=== PATIENT | female | born 1970 | race Caucasian/White ===

== ENCOUNTER 2018-12-11 08:07 | Observation (INO) ==
--- NOTE | 2018-12-07 09:42 | Anesthesiology Consultation ---
Date of Service December 07, 2018 Assessment & Plan (1) Encounter for pre-operative examination: Chart received for review 12/07/18. Hx diabetes; BMP and EKG were not ordered with preop testing. Will order for AM DOS. Pending review of preop testing AM DOS/evaluation of clinical status, patient acceptable risk to proceed with surgery. Chart Review Chart Review: Patient NOT seen in Pre Admission Testing History Surgery Operation Date: 12/11/18 09:50 Proposed Procedures p Anterior Cervical Osteophyte Removal - Darryn Kelley DO Height/Weight Height: 5 ft 1.5 in Weight: 87.543 kg Allergies Allergy/AdvReac Type Severity Reaction Status Date / Time ceftriaxone [From Rocephin] Allergy Unknown Rash Verified 11/29/18 13:05 cephalexin [From Keflex] Allergy Rash Verified 11/29/18 13:05 Sulfa (Sulfonamide Allergy Rash Verified 11/29/18 13:05 Antibiotics) Medications Home Medications Medication Instructions Recorded Confirmed Last Taken albuterol sulfate 1 puff INHALATION Q6H PRN 11/29/18 11/29/18 Unknown calcium carbonate-vitamin D3 1 tab PO BID 11/29/18 11/29/18 Unknown [Calcium 500 + D] diclofenac sodium 50 mg PO Q12 11/29/18 11/29/18 Unknown fluticasone propionate [Flonase 1 spray INTRANASAL BID PRN 11/29/18 11/29/18 Unknown Allergy Relief] folic acid 1 mg PO QAM 11/29/18 11/29/18 Unknown gabapentin 300 mg PO QAM 11/29/18 11/29/18 Unknown gabapentin 600 mg PO HS 11/29/18 11/29/18 Unknown infliximab [Remicade] 100 mg IV Q8 11/29/18 11/29/18 Unknown insulin degludec-liraglutide 34 ml SUBCUT QAM 11/29/18 11/29/18 Unknown [Xultophy 100/3.6] levocetirizine [Xyzal] 5 mg PO QAM 11/29/18 11/29/18 Unknown lisinopril 2.5 mg PO QAM 11/29/18 11/29/18 Unknown mercaptopurine 100 mg PO QAM 11/29/18 11/29/18 Unknown mesalamine 1,600 mg PO TID 11/29/18 11/29/18 Unknown montelukast [Singulair] 10 mg PO PM 11/29/18 11/29/18 Unknown pantoprazole [Protonix] 40 mg PO QAM 11/29/18 11/29/18 Unknown rosuvastatin [Crestor] 20 mg PO HS 11/29/18 11/29/18 Unknown umeclidinium-vilanterol [Anoro 1 inh INHALATION QAM 11/29/18 11/29/18 Unknown Ellipta] Past Medical History Medical History Ankylosing spondylitis of cervical region Bulging lumbar disc Crohns disease Diabetes mellitus, type 2 Exercise-induced asthma Hiatal hernia History of kidney stones Hyperlipidemia Hypertension Ulcerative colitis Past Family History Family History Father Family history of diabetes mellitus Mother Family history of diabetes mellitus Grandmother (Maternal) Family history of diabetes mellitus Past Surgical History Surgical History History of endometrial ablation History of esophagogastroduodenoscopy (EGD) Hx of arthroscopic knee surgery LEFT Hx of cholecystectomy Hx of colonoscopy Hx of decompression of ulnar nerve RIGHT Hx of shoulder surgery LEFT Social History Smoking Status: Never smoker Do You Dip or Chew Tobacco: No Hx Alcohol Use: Yes Alcohol type: hard liquor alcohol intake frequency: holidays/special occasions only Hx Substance Use: No
--- NOTE | 2018-12-08 14:27 | History and Physical Report ---
DATE OF ADMISSION: 12/11/2018 CHIEF COMPLAINT: Swallowing difficulty. HISTORY OF PRESENT ILLNESS: Nikki is pleasant. She is 48. She has a disease called ankylosing spondylitis. She has been gone on to make significant osteophyte formation in her cervical spine which is impeding her swallowing ability. We are going to electively take off the anterior cervical osteophytes on the cervical spine. PAST MEDICAL HISTORY: Ankylosing spondylitis, diabetes, high cholesterol, hypertension, asthma. PAST SURGICAL HISTORY: Knee scope, shoulder scope, cholecystectomy, colonoscopy. ALLERGIES: ROCEPHIN, KEFLEX. FAMILY HISTORY: Diabetes. SOCIAL HISTORY: , rarely drinks. No tobacco. Moderately active. REVIEW OF SYSTEMS: Denies any fevers, sweats, chills. Ear, nose and throat negative. Denies any chest pain, palpitations. No nausea, vomiting. She does have difficulty swallowing. Denies chest pain, palpitations. She admits to stiffness of her cervical spine and diabetes. MEDICATIONS: Numerous and are kept on the patient inquiry, I am holding off on dictation of these. EXAMINATION: GENERAL: She is alert, oriented. She is 5 feet 1 inch, 190, no terrible distress. HEENT: Essentially normal except for difficulty swallowing. There is no palpable defect. VITAL SIGNS: Blood pressure 130/80, pulse 80, respirations 16. CARDIAC: Normal S1, S2, no S3. LUNGS: Clear to auscultation. No rales, rhonchi, wheezing. ABDOMEN: Soft, nontender. NEUROLOGIC: Intact, 5/5 strength, good sensation and motor ability. Sensory and reflex ability. IMAGING: X-rays demonstrate severe osteophyte formation in the cervical spine. IMPRESSION: Cervical osteophytes, C3-C6 from ankylosing spondylitis. PROCEDURE: Included an anterior cervical osteophyte removal from C3-C6.
[~2018-12-11 08:07] MED LIST: CLINDAMYCIN 600 MG/54 ML BAG IV SCH; LR 15ML/HR IV SCH; SODIUM CHLORIDE 0.9% 1000ML 1,000 ML IV SCH; SODIUM CHLORIDE 0.9% 250 ML IV PRN
[2018-12-11 08:48] LABS: Basophils # (auto) 0.04 K/uL (0-0.2); Basophils % (auto) 0.5 %; Eosinophils # (auto) 0.31 K/uL (0-0.5); Eosinophils % (auto) 3.9 %; Hematocrit (blood only) 38.4 % (37-47); Hemoglobin 13.1 g/dL (12.0-16.0); Immature Granulocytes # (auto) 0.04 K/uL (0.00-0.02); Immature Granulocytes % (auto) 0.5 %; Lymphocytes # (auto) 2.27 K/uL (1.2-3.4); Lymphocytes % (auto) 28.7 %; Mean Corpuscular Volume 85.3 fL (80-100); Mean Platelet Volume 9.7 fL (7.4-10.4); Monocytes # (auto) 0.55 K/uL (0.11-0.59); Neutrophils % (auto) 59.4 %; Platelet Count 243 K/uL (130-400); RDW Coefficient of Variation 14.1 % (11.5-14.5); RDW Standard Deviation 43.8 fL (36.4-46.3); White Blood Count 7.91 K/uL (4.8-10.8)
[2018-12-11 08:54] LABS: Mean Corpuscular Hgb Conc 34.1 g/dL (32-36)
[2018-12-11 09:07] LABS: BUN Creatinine Ratio 17.8 (10-20); Calcium 9.3 mg/dl (8.5-10.1); Creatinine Clr Calc Pharmacy 95.7 ml/min; Est GFR (African American) 112.1; Est GFR (Non-African American) 96.7; Potassium 3.7 mmol/L (3.5-5.1)
[2018-12-11] MEDS ORDERED: MIDAZOLAM HCL 1 MG/ML 2ML VIAL ONE (09:18)
[2018-12-11] MEDS ORDERED: fentaNYL citrate 100 MCG/2 ML VIAL ONE (09:18)
[2018-12-11] MEDS ORDERED: THROMBIN FOR SOLN 20000 UNIT KIT ONE (09:52)
[2018-12-11] MEDS ORDERED: BACITRACIN INJ 50,000 UNIT VIAL ONE (09:52)
[2018-12-11] MEDS ORDERED: GELATIN SPONGE SZ 100 ONE (09:52)
[2018-12-11] MEDS ORDERED: BUPIVACAINE/EPINEPHRINE 0.5% MPF 1:200,000 30 ML VIAL ONE (09:52)
--- NOTE | 2018-12-11 10:07 | History & Physical Bridge Note ---
Date of Service December 11, 2018 History & Physical Bridge Note I have examined the patient, reviewed the History & Physical and in the interval since the performance of the History & Physical I have noted the following changes of clinical significance: no changes noted
[2018-12-11] MEDS ORDERED: HYDROmorphone INJ 1 MG/ML SYRINGE IV PRN (10:40)
[2018-12-11] MEDS ORDERED: ePHEDrine sulfate 50 MG/ML AMP IV PRN (10:40)
[2018-12-11] MEDS ORDERED: ONDANSETRON INJ 2 MG/ML 2 ML VIAL IV PRN ×2 (10:40→13:41)
[2018-12-11] MEDS ORDERED: ATROPINE SULFATE 0.1 MG/ML 10ML SYR IV PRN (10:40)
[2018-12-11] MEDS ORDERED: HYDROmorphone INJ 2 MG/ML SYR/VIAL ONE (10:42)
[2018-12-11] MEDS ORDERED: NEOSTIGMINE METHYLSULFATE 5 MG/5 ML SYR ONE (11:05)
[2018-12-11] MEDS ORDERED: DEXAMETHASONE SOD INJ 4 MG/ML VIAL ONE (11:05)
[2018-12-11] MEDS ORDERED: LIDOCAINE HCL 2% 2 ML VIAL/AMP(20MG/ML) INFIL ONE (11:05)
[2018-12-11] MEDS ORDERED: PHENYLEPHRINE HCL 10 MG/ML VIAL ONE (11:05)
[2018-12-11] MEDS ORDERED: ONDANSETRON INJ 2 MG/ML 2 ML VIAL ONE (11:05)
[2018-12-11] MEDS ORDERED: SUCCINYLCHOLINE CHLORIDE 20 MG/ML 10 ML VIAL ONE (11:05)
[2018-12-11] MEDS ORDERED: ePHEDrine sulfate 50 MG/ML AMP ONE (11:05)
[2018-12-11] MEDS ORDERED: PROPOFOL IV EMULSION 10 MG/ML 20 ML VIAL IV ONE (11:05)
[2018-12-11] MEDS ORDERED: GLYCOPYRROLATE 0.2 MG/ML VIAL ONE (11:05)
--- NOTE | 2018-12-11 11:47 | Post Operative Brief Note ---
Immediate Post Op Note v1 Date of Surgery December 11, 2018 Pre & Post Diagnosis Operation Date: 12/11/18 10:20 Pre-Op Diagnosis: Ankylosing Spondylitis Post-Op Diagnosis: Ankylosing Spondylitis Procedure Operation Date: 12/11/18 10:20 Actual Procedures p C3-C6 Anterior Cervical Osteophyte Removal(Not Applicable) - Darryn Kelley DO Surgeon Darryn Kelley DO Contact Center Director ranjith Estimated Blood Loss 40 Findings Consistent with Post-Op Diagnosis Drains [place] Drain Complications none Disposition Accompanied Patient To Recovery: Yes Overlapping Procedure I was immediately available: during the entire case.
--- NOTE | 2018-12-11 11:57 | Fluoroscopy Report ---
FL spine 1V any level HISTORY: 48 years-old Female C3-C6 CERVICAL OSTEOPHYTE REMOVAL status post fusion of the cervical sp ine COMPARISON: Cervical spine radiographs 08/30/2018 TECHNIQUE: Single lateral spot fluoroscopic image of the cervical spine was obtained utilizing 7.3 se conds fluoroscopy time FINDINGS: C5, C6 and C7 vertebral bodies are not well-seen secondary to overlying soft tissue. Alignment at C2- C3 and C3-C4 appears unremarkable. The previously noted large anterior endplate bridging osteophytes at C3-C4 and C4-C5 appears to have been removed in the interval. Satisfactory alignment. Mild multile juana facet arthrosis. No hardware identified. IMPRESSION: Fluoroscopic assistance as above. Please see operative report for further details. The above report was generated using voice recognition software. It may contain grammatical, syntax o r spelling errors. Electronically signed by: Shakeel Becker M.D. 12/11/2018 11:55 AM
[2018-12-11] MEDS: fentaNYL citrate 100 MCG/2 ML VIAL IV PRN ×2 (12:22→12:32)
--- NOTE | 2018-12-11 13:12 | Anesthesiology Progress Note ---
Date of Service December 11, 2018 Anesthesia Post Procedure Vital Signs Vital Signs: Temp Pulse Pulse Resp BP Pulse Ox 12/11/18 13:05 36.4 C L 72 13 142/87 H 100 12/11/18 12:55 74 13 139/85 100 12/11/18 12:45 81 13 141/84 H 100 12/11/18 12:35 84 22 152/80 H 99 12/11/18 12:25 70 14 139/75 100 12/11/18 12:15 83 13 156/84 H 100 12/11/18 12:07 36.1 C L 91 H 16 166/74 H 100 12/11/18 08:44 37 C 85 20 128/78 99 Pain Intensity Neck: Pain Intensity: 3 Transfer of Care Handoff Completed per policy Notes Mental Status: alert / awake / arousable and participated in evaluation Patient Amnestic to Procedure: Yes Nausea / Vomiting: adequately controlled Pain: adequately controlled Airway Patency, RR, SpO2: stable & adequate BP & HR: stable & adequate Hydration State: stable & adequate Anesthetic Complications: no major complications apparent and Pt Satisfied with anesthetic care
[2018-12-11] MEDS ORDERED: ACETAMINOPHEN 1,000 MG/100 ML VIAL IV PRN (13:41)
[2018-12-11] MEDS ORDERED: HYDROmorphone INJ 0.5 MG/0.5 ML SYR IV PRN (13:41)
[2018-12-11] MEDS ORDERED: NALOXONE HCL 0.4 MG/1 ML VIAL/CARP IV PRN (13:41)
[2018-12-11] MEDS ORDERED: DiphenhydrAMINE HCL 50 MG/ML VIAL IV PRN (13:41)
[2018-12-11] MEDS ORDERED: RACEPINEPHRINE 2.25% NEBU SOLN 0.5 ML VIAL INH PRN (13:41)
[2018-12-11] MEDS ORDERED: DEXAMETHASONE SOD PHOSPHATE 8 MG in SYRINGE 0 ML IV PRN (13:41)
[2018-12-11] MEDS ORDERED: LORazepam 0.5 MG/1 ML VIAL IV PRN (13:41)
[2018-12-11] MEDS ORDERED: PHARMACY GLYCEMIC MGMT CONSULT PRN (13:47)
[2018-12-11] MEDS: SODIUM CHLORIDE 0.9% 1000ML 1,000 ML IV SCH (13:50)
[2018-12-11] MEDS ORDERED: INFLIXIMAB 100 MG/10 ML VIAL IV SCH (14:00)
--- NOTE | 2018-12-11 14:12 | Operative Report ---
DATE OF OPERATION: 12/11/2018 SURGEON: Darryn Kelley DO LIVESTOCK INSPECTOR: Mikael Mullen PA-C PREOPERATIVE DIAGNOSIS: Ankylosing spondylitis with swallowing impediment. POSTOPERATIVE DIAGNOSIS: Ankylosing spondylitis with swallowing impediment. PROCEDURES: Removal of anterior osteophytes on the vertebral bodies from C3 down to C5 of the cervical spine. DESCRIPTION OF PROCEDURE: Prior to the patient coming to the operating room, she was formally identified in the holding area. We brought her back, generally intubated, anesthetic provided. Scrubbed, prepped, draped sterile, made a formal timeout. We made a transverse skin incision roughly on the C4 vertebral level. We dissected the soft tissue in the same plane. We cut down the longus colli muscle. The patient was quite obese. The actual approach was difficult. It was deep and the soft tissue planes were distorted because of the osteophyte formation. We got to the anterior aspect of the spine. I brought in the C-arm, we could visualize the anterior osteophytes. We had hand-held retractors with various maneuvers. We did take off ample amount of osteophyte formation in the anterior aspect of the spinal vertebral body. These were lying just underneath the trachea and esophagus. I used an osteotome, some rongeurs, all hand-held instruments, there were no high-speed instruments. I took another cross table lateral radiograph. I felt it was ample dissection and I felt we did more, we would endanger the patient. We then irrigated thoroughly. I got all bleeders from soft tissue and bone. Bone wax was used over the anterior aspect. I was pleased with the hemostasis and pleased with the dissection. We irrigated and closed over a [place] drain. Sterile dressings applied. The patient was transferred to PACU improved, stable condition. There were no issues or complications. No implants used. Sponge and needle count correct at the close. I attest to the content of the Intraoperative Record and any orders documented therein. Any exception s are noted below.
--- NOTE | 2018-12-11 14:52 | Pharmacy Report ---
Glycemic Control Consultation - Date of Service December 11, 2018 - Scope Scope: Glycemic Pharmacist consulted by Dr Mullen on 12/11/18 for glycemic control and to write orders per [facility] inpatient glycemic control protocol - Objective Weight: 89.2 kg Accuchecks BSG (last 24hrs): 12/11/18 12/11/18 12/11/18 08:33 08:38 12:14 Glucose 135 H POC Glucose 136 H 138 H Laboratory Data (last 24hrs): 12/11/18 08:33 Potassium 3.7 Carbon Dioxide 27 Anion Gap 7.0 Creatinine 0.73 Est Cr Clr Drug Dosing 95.7 - Recent Pertinent Medications Outpatient Anti-diabetic Regimen: * Degludec/liraglutide 34u QAM - Assessment & Plan Assessment & Plan: ASSESSMENT: * Ms. Sanon is a 48yo F unknown to the pharmacy glycemic service. She is POD: 0 for a cervical osteophyte removal. She received 4mg IV DXM perioperatively. I am unsure of her diabetic status as I do not have access to an A1C. * She is maintained on Degludec/liraglutide 34u QAM, she self administered 17u this morning GEAR CHANGER. * Post op BS, she is still NPO. PLAN FOR INPATIENT GLYCEMIC CONTROL: * Basal insulin * none indicated at this juncture. will add scale for this evening, see MAR for further details * Bolus insulin * NovoLog per scale ACHS or Q6hrs while NPO * Goal Range: Low 110 mg/dL - High 140 mg/dL * Correction Factor: 20 mg/dL/unit * Nutritional / Prandial insulin per carb ratio of 1 unit per 6 grams CHO consumed * Please note that the plan above was derived based on current level of insulin resistance and hospital stress. These recommendations are appropriate for inpatient admission only. Plan of care upon discharge will need to be reassessed to avoid potential outpatient hypo/hyperglycemia. Thank you.
[2018-12-11] MEDS ORDERED: INSULIN GLARGINE SOLOSTAR 100 UNITS/ML 3 ML PEN SC ONE (16:30)
[2018-12-11] MEDS: OXYCODONE HCL IR 5 MG TAB (IMMEDIATE RELEASE) PO PRN ×2 (17:09→20:52)
[2018-12-11] MEDS ORDERED: INSULIN ASPART 100 UNITS/ML 3 ML PEN SC SCH (18:00)
[2018-12-11] MEDS: INSULIN ASPART 100 UNITS/ML 3 ML PEN SC SCH ×2 (18:12→21:04)
[2018-12-11] MEDS: CLINDAMYCIN 600 MG in DEXTROSE 5% 50 ML IV SCH (19:18)
[2018-12-11] MEDS ORDERED: GABAPENTIN 600 MG TAB PO SCH (21:00)
[2018-12-11] MEDS ORDERED: ROSUVASTATIN CALCIUM 20 MG TAB PO SCH (21:00)
[2018-12-11] MEDS ORDERED: MONTELUKAST SODIUM 10 MG TABLET PO SCH (21:00)
[2018-12-12] MEDS ORDERED: INSULIN ASPART 100 UNITS/ML 3 ML PEN SC ONE
[2018-12-12] MEDS: CLINDAMYCIN 600 MG in DEXTROSE 5% 50 ML IV SCH ×2 (01:59→09:33)
[2018-12-12] MEDS: SODIUM CHLORIDE 0.9% 1000ML 1,000 ML IV SCH (03:07)
[2018-12-12 06:42] LABS: Estimated Average Glucose 183 mg/dl
[2018-12-12] MEDS: INSULIN ASPART 100 UNITS/ML 3 ML PEN SC SCH (08:29)
[2018-12-12] MEDS: OXYCODONE HCL IR 5 MG TAB (IMMEDIATE RELEASE) PO PRN (08:36)
[2018-12-12] MEDS ORDERED: GABAPENTIN 300 MG CAP PO SCH (09:00)
[2018-12-12] MEDS ORDERED: FOLIC ACID 1 MG TAB PO SCH (09:00)
[2018-12-12] MEDS ORDERED: LISINOPRIL 2.5 MG TAB PO SCH (09:00)
[2018-12-12] MEDS ORDERED: PANTOprazole 40 MG TAB PO SCH (09:00)
--- NOTE | 2018-12-12 09:22 | Anesthesiology Progress Note ---
Date of Service December 12, 2018 Anesthesia Post Procedure Vital Signs Vital Signs: Temp Pulse Pulse Pulse Resp BP Pulse Ox 12/12/18 07:23 36.7 C 69 18 121/81 99 12/12/18 06:05 36.7 C 93 H 16 123/81 12/12/18 04:04 92 H 18 97 12/12/18 04:00 36.9 C 94 H 14 116/76 97 12/12/18 02:03 36.9 C 90 14 116/74 95 12/12/18 00:05 37.1 C 112 H 14 132/77 96 12/11/18 23:20 103 H 18 96 12/11/18 22:38 36.5 C 107 H 16 123/78 94 12/11/18 20:35 37.2 C 97 H 18 136/87 99 12/11/18 19:15 104 H 16 100 12/11/18 18:20 36.8 C 91 H 16 135/83 100 12/11/18 16:35 16 143/87 H 100 12/11/18 15:34 36.5 C 93 H 20 139/86 98 12/11/18 14:38 36.5 C 89 16 134/89 98 12/11/18 14:26 89 16 99 12/11/18 14:05 36.6 C 77 16 136/85 99 12/11/18 13:35 36.7 C 88 14 147/85 H 100 12/11/18 13:15 69 13 136/76 99 12/11/18 13:05 36.4 C L 72 13 142/87 H 100 12/11/18 12:55 74 13 139/85 100 12/11/18 12:45 81 13 141/84 H 100 12/11/18 12:35 84 22 152/80 H 99 12/11/18 12:25 70 14 139/75 100 12/11/18 12:15 83 13 156/84 H 100 12/11/18 12:07 36.1 C L 91 H 16 166/74 H 100 Pain Intensity Neck: Pain Intensity: 3 Notes Mental Status: alert / awake / arousable Patient Amnestic to Procedure: Yes Nausea / Vomiting: adequately controlled Pain: adequately controlled Airway Patency, RR, SpO2: stable & adequate BP & HR: stable & adequate Hydration State: stable & adequate Anesthetic Complications: no major complications apparent
--- NOTE | 2018-12-12 10:47 | Discharge Summary ---
She is postop day 1 from anterior surgery on the cervical spine, removing osteophytes for ankylosing spondylitis. She is improved, stable. Taking p.o. No voice or swallowing difficulties. She is alert, oriented. Vital signs all stable. Labs not indicated. She is 20 hours post anterior surgery. PLAN: We will discharge her home today. Dressing changed. Drain will be removed. We will see her back in the office in 2 weeks. Collar is to be worn at all times except for eating. Instructions given, precautions given here and in the office.
--- NOTE | 2018-12-12 11:40 | Pharmacy Report ---
Pharmacy Glycemic Short Note 2 - Date of Service December 12, 2018 - Glycemic Short BSG Results (Last 24 hours): 12/11/18 12/11/18 12/11/18 12:14 17:27 20:32 POC Glucose 138 H 150 H 141 H 12/12/18 12/12/18 00:02 08:15 POC Glucose 128 H 147 H PLAN FOR INPATIENT GLYCEMIC CONTROL: * Hold outpatient oral diabetes medications * Basal insulin * Lantus - had held this morning AM Lantus as trying to transition to once daily regimen * Patient discharged home today, would resume her home Xultophy dosing on discharge * Bolus insulin - no change * NovoLog per scale ACHS or Q6hrs while NPO * Goal Range: Low 110 mg/dL - High 140 mg/dL * Correction Factor: 20 mg/dL/unit * Nutritional / Prandial insulin per carb ratio of 1 unit per 6 grams CHO consumed
[2018-12-13] MEDS ORDERED: MERCAPTOPURINE 50 MG TAB PO SCH (09:00)
== END 2018-12-12 11:38 | disposition home or self-care (01) ==
LOC: ASU 08:07 → 3E 08:07